=== PATIENT | female | born 1980 | race Caucasian/White ===

== ENCOUNTER → 2020-04-28 | Outpatient (CLI) | payer BC ==
[~2020-04-28] MED LIST: ACHYD1T PO; IBP800T PO; PREN1TAB25 PO
--- NOTE | 2020-04-28 11:00 | Diagnostic Imaging Report ---
INDICATION: Routine screening. Comparison is made with prior mammogram 05/04/2015. 2-D and 3-D bilateral screening mammography was performed with CAD. Both breasts are heterogeneous dense, limiting the sensitivity of mammography. No dominant mass or malignant appearing microcalcifications are seen. Axillae are unremarkable. IMPRESSION: BI-RADS Category 1 No mammographic features suspicious for malignancy are identified. ACR BI-RADS Category 1: Negative. Result letter will be mailed to the patient. Note: At least 10% of breast cancer is not imaged by mammography. Dictated by: Dictated on workstation # [id number]
== END ==
LOC: RAD 07:45
PROVIDERS: ATTEND Obstetrics & Gynecology
DX: Z12.31 Encounter for screening mammogram for malignant neoplasm of breast (principal)
CPT/HCPCS: 77063; 77067

== ENCOUNTER 2020-10-16 10:28 | Inpatient (IN) | payer BC ==
[~2020-10-16] VITALS: Ht 177.8 cm; Wt 110.4 kg
[2020-10-16] MEDS ORDERED: IBUPROFEN 600 MG (MOTRIN) TAB PO PRN (11:00)
[2020-10-16] MEDS ORDERED: CLINDAMYCIN 900 MG/50 ML IVPB 50 ML IV SCH (11:00)
[2020-10-16] MEDS ORDERED: HYDROcodone/APAP 5 MG/325 MG (LORTAB) TAB PO PRN (11:00)
[2020-10-16] MEDS ORDERED: ONDANSETRON 4 MG/2 ML (SDV) Z0FRAN IVP PRN (11:00)
[2020-10-16] MEDS ORDERED: PATIENT MAY USE OWN MEDS, ALL PO SCH (11:00)
[2020-10-16 12:00] VITALS: BP 128/84
[2020-10-16] MEDS: NS IV 1000 ML 1,000 ML IV SCH ×2 (12:02→18:00)
[2020-10-16] MEDS: ENOXAPARIN 40 MG/0.4 ML (LOVENOX) SYR SC SCH (12:02)
[2020-10-16] MEDS: LACTOBACILLUS ACIDOPHILUS (PROBIOTIC) CAPSULE PO SCH ×2 (12:05→17:59)
--- NOTE | 2020-10-16 12:13 | Progress Note ---
Subjective Date Seen by a Provider: Oct 16, 2020 Time Seen by a Provider: 12:09 Subjective/Events-last exam This is a 40 year old female seen at the end of last week for a brown recluse spider bite to her left upper arm. She was given a rocephin shot in my office and started on keflex and dapsone for the weekend. She went to the Urgent Care over the weekend for worsening redness and her antibiotic was changed to doxycycline. However, she presents today with worsening redness and warmth of her left upper arm. She will be directly admitted for IV antibiotics and further evaluation. Objective Exam Capillary Refill : General Appearance: Mild Distress Respiratory: Lungs Clear Cardiovascular: Regular Rate, Rhythm Gastrointestinal: normal bowel sounds, non tender, soft Extremity: Non Tender, No Calf Tenderness, No Pedal Edema Neurologic/Psychiatric: Alert, Oriented x3 Skin: Erythema (to left upper arm extending down medially to elbow and forearm--warm and tender to touch) Assessment/Plan Assessment/Plan Assess & Plan/Chief Complaint 1. Worsening Left Upper Extremity Cellulitis--admit for IV clindamycin and check CBC, CRP, lactic acid and blood cultures 2. Brown Recluse Spider Bite--continue dapsone LILO DAVIS DO Oct 16, 2020 12:13
[2020-10-16] MEDS: KETOROLAC 30 MG/ML VIAL IV PRN ×2 (12:17→20:21)
--- NOTE | 2020-10-16 12:18 | History & Physical ---
History of Present Illness History of Present Illness Reason for visit/HPI This is a 40 year old female seen at the end of last week for a brown recluse spider bite to her left upper arm. She was given a rocephin shot in my office and started on keflex and dapsone for the weekend. She went to the Urgent Care over the weekend for worsening redness and her antibiotic was changed to doxycycline. However, she presents today with worsening redness and warmth of her left upper arm. She will be directly admitted for IV antibiotics and further evaluation. Date of Admission Oct 16, 2020 at 11:01 Date Seen by a Provider: Oct 16, 2020 Time Seen by a Provider: 10:30 I consulted on this patient on 10/16/20 12:15 Attending Physician Quiana León DO Admitting Physician Quiana León DO Consult Allergies and Home Medications Allergies Coded Allergies: NKANo Known Allergies (Verified Allergy, Unknown, 10/16/20) Home Medications Hydrocodone Bit/Acetaminophen 1 Tab Tablet, 1-2 TAB PO Every 3 Hours PRN, (Reported) Ibuprofen 800 Mg Tab, 800 MG PO Q6H PRN, (Reported) Vit#96/Ferrous Fum/Fa 1 Each Tablet, 1 EACH PO DAILY, (Reported) Patient Home Medication List Home Medication List Reviewed: Yes Past Sfshqpr-Nsepgf-Qropxs Hx Past Med/Social Hx: Reviewed Nursing Past Med/Soc Hx Patient Social History Marrital Status: Smoking Status: Never a Smoker Recent Foreign Travel: No Contact w/other who traveled: No Immunizations Up To Date Tetanus Booster (TDap): Unknown Past Medical History Reproductive: No Review of Systems Constitutional: fever, weakness EENTM: No see HPI, No no symptoms reported, No ear discharge, No hearing loss, No ear pain, No blurred vision, No double vision, No eye pain, No tearing, No vision loss, No dental problems, No hoarseness, No mouth pain, No mouth swelling, No epistaxis, No nose congestion, No nose pain, No throat pain, No throat swelling, No other Respiratory: No no symptoms reported, No see HPI, No cough, No dyspnea on exertion, No hemoptysis, No orthopnea, No phlegm, No short of breath, No stridor, No wheezing, No other Cardiovascular: No no symptoms reported, No see HPI, No chest pain, No edema, No Hx of Intervention, No palpitations, No syncope, No vascular heart diseas, No other Gastrointestinal: nausea Genitourinary: decreased output Musculoskeletal: muscle pain Skin: other (worsening redness of left arm) Psychiatric/Neurological: Paresthesia (shooting pain to left arm area), Weakness Physical Exam Vital Signs Capillary Refill : Height, Weight, BMI Height: '" Weight: 241lbs. 0.0oz. [id number]; 34.92 BMI Method: General Appearance: Mild Distress Neck: Supple Respiratory: Lungs Clear Cardiovascular: Regular Rate, Rhythm Gastrointestinal: Normal Bowel Sounds, Non Tender, Soft Rectal: Deferred Back: No CVA Tenderness Extremity: Non Tender, No Calf Tenderness, No Pedal Edema Neurologic/Psychiatric: Alert, Oriented x3 Skin: Erythema (left upper arm with warmth/tenderness--extending medially into elbow and forearm) Assessment/Plan Assessment and Plan 1. Worsening Left Upper Extremity Cellulitis--admit for IV antibiotics and further workup 2. Brown Recluse Spider Bite--continue dapson Admission Diagnosis Admission Status: Inpatient Order (span 2 midnights) Reason for Inpatient Admission: Will need at least 48hrs of IV abx QUIANA LEÓN DO Oct 16, 2020 12:18
[2020-10-16] MEDS ORDERED: DAPS100T3 PO (13:07)
[2020-10-16] MEDS ORDERED: ACET325T38 PO (13:07)
[2020-10-16] MEDS ORDERED: MULT-1136 PO (13:07)
[2020-10-16] MEDS ORDERED: HYDR25TA4 PO (13:07)
[2020-10-16] MEDS ORDERED: LACT1CAP62 PO (13:07)
[2020-10-16] MEDS ORDERED: DOXY100T2 PO (13:07)
[2020-10-16] MEDS ORDERED: NORG1TAB14 PO (13:07)
[2020-10-16] MEDS ORDERED: CEPH500C PO (13:07)
[2020-10-16] MEDS: ACETAMINOPHEN 325 MG TABLET PO PRN (15:26)
[2020-10-16 16:00] VITALS: BP 133/83
[2020-10-16 16:25] LABS: ALANINE AMINOTRANSFERASE 12 U/L (0-55); ALKALINE PHOSPHATASE 68 U/L (40-136); BILIRUBIN,TOTAL 0.6 MG/DL (0.1-1.0); BUN/CREATININE RATIO 15; CALCIUM 10.1 MG/DL (8.5-10.1); CARBON DIOXIDE 23 MMOL/L (21-32); CHLORIDE 104 MMOL/L (98-107); CREATININE SERUM 0.82 MG/DL (0.60-1.30); GFR ESTIMATED > 60; GLUCOSE 84 MG/DL (70-105); POTASSIUM 3.4 MMOL/L (3.6-5.0); SODIUM 137 MMOL/L (135-145); TOTAL PROTEIN 8.3 GM/DL (6.4-8.2)
[2020-10-16 16:52] LABS: BASOPHILS % (AUTO) 0 % (0-10); EOSINOPHILS # (AUTO) 0.3 10^3/uL (0.0-0.3); EOSINOPHILS % (AUTO) 4 % (0-10); HEMATOCRIT 41 % (35-52); HEMOGLOBIN 13.8 g/dL (11.5-16.0); LYMPHOCYTES # (AUTO) 1.7 X 10^3 (1.0-4.0); LYMPHOCYTES % (AUTO) 19 % (12-44); MEAN CORPUSCULAR HEMOGLOBIN 32 pg (25-34); MEAN CORPUSCULAR HGB CONC 33 g/dL (32-36); MEAN CORPUSCULAR VOLUME 97 fL (80-99); MEAN PLATELET VOLUME 10.1 fL (9.0-12.2); MONOCYTES # (AUTO) 0.5 X 10^3 (0.0-1.0); MONOCYTES % (AUTO) 5 % (0-12); NEUTROPHILS # (AUTO) 6.6 X 10^3 (1.8-7.8); NEUTROPHILS % (AUTO) 72 % (42-75); PLATELET COUNT 187 10^3/uL (130-400); WHITE BLOOD COUNT 9.1 10^3/uL (4.3-11.0)
[2020-10-16] MEDS ORDERED: KCL 20 MEQ TAB (K-DUR) PO NR (17:15)
[2020-10-16 19:44] VITALS: BP 156/94
[2020-10-16 20:13] VITALS: BP 140/85
[2020-10-16] MEDS: DAPSONE 100 MG TABLET PO SCH (20:20)
[2020-10-16] MEDS: CLINDAMYCIN 900 MG/50 ML IVPB 50 ML IV SCH (20:20)
[2020-10-17 00:54] VITALS: BP 128/82
[2020-10-17] MEDS: CLINDAMYCIN 900 MG/50 ML IVPB 50 ML IV SCH ×3 (04:03→19:56)
[2020-10-17] MEDS: NS IV 1000 ML 1,000 ML IV SCH ×2 (04:06→13:39)
[2020-10-17 04:25] VITALS: BP 126/75
[2020-10-17] MEDS: KETOROLAC 30 MG/ML VIAL IV PRN (05:14)
[2020-10-17 06:13] LABS: HEMATOCRIT 34 % (35-52); HEMOGLOBIN 11.4 g/dL (11.5-16.0); MEAN CORPUSCULAR HEMOGLOBIN 33 pg (25-34); MEAN CORPUSCULAR HGB CONC 34 g/dL (32-36); MEAN CORPUSCULAR VOLUME 97 fL (80-99); PLATELET COUNT 154 10^3/uL (130-400); WHITE BLOOD COUNT 8.5 10^3/uL (4.3-11.0)
[2020-10-17 06:21] LABS: CHLORIDE 107 MMOL/L (98-107); POTASSIUM 3.8 MMOL/L (3.6-5.0); SODIUM 138 MMOL/L (135-145)
[2020-10-17 06:23] LABS: CALCIUM 8.3 MG/DL (8.5-10.1); GLUCOSE 99 MG/DL (70-105)
[2020-10-17 06:25] LABS: CARBON DIOXIDE 21 MMOL/L (21-32)
[2020-10-17 06:27] LABS: CREATININE SERUM 0.78 MG/DL (0.60-1.30); GFR ESTIMATED > 60
[2020-10-17 06:28] LABS: BUN/CREATININE RATIO 12
[2020-10-17 07:57] VITALS: BP 126/85
[2020-10-17] MEDS: LACTOBACILLUS ACIDOPHILUS (PROBIOTIC) CAPSULE PO SCH ×3 (08:41→18:13)
[2020-10-17] MEDS: DAPSONE 100 MG TABLET PO SCH ×2 (08:41→20:00)
[2020-10-17] MEDS: ENOXAPARIN 40 MG/0.4 ML (LOVENOX) SYR SC SCH (10:36)
[2020-10-17] MEDS: ACETAMINOPHEN 325 MG TABLET PO PRN ×2 (10:39→20:46)
[2020-10-17 12:21] VITALS: BP 131/88
[2020-10-17 16:00] VITALS: BP 131/73
--- NOTE | 2020-10-17 16:52 | Progress Note ---
Subjective Date Seen by a Provider: Oct 17, 2020 Time Seen by a Provider: 08:30 Subjective/Events-last exam Fwup Left Upper Arm Cellullitis, Brown Recluse Spider Bite. Arm less red and less warm. Focused Exam Lactate Level 10/16/20 15:35: Lactic Acid Level 1.27 Objective Exam Vital Signs Date Time Temp Pulse Resp B/P (MAP) Pulse Ox O2 Delivery O2 Flow Rate FiO2 10/17/20 16:00 36.4 79 20 131/73 (92) 94 Room Air 10/17/20 12:21 36.5 78 20 131/88 (102) 94 Room Air 10/17/20 08:00 Room Air 10/17/20 07:57 36.7 72 20 126/85 (99) 92 Room Air 10/17/20 04:25 37.0 87 20 126/75 (92) 92 Room Air 10/17/20 00:54 36.4 82 128/82 (97) 10/16/20 20:13 82 140/85 (103) 10/16/20 20:00 92 Room Air 10/16/20 19:44 36.7 97 18 156/94 (114) 92 Room Air I & O 10/17/20 07:00 Intake Total 1650 ml Output Total 6 ml Balance 1644 ml Capillary Refill : General Appearance: No Apparent Distress Extremity: Non Tender, No Calf Tenderness, No Pedal Edema Neurologic/Psychiatric: Alert, Oriented x3 Skin: Erythema (left upper arm with less erythema and less warmth and tenderness) Results Lab Laboratory Tests 10/17/20 06:03: White Blood Count 8.5, Red Blood Count 3.49L, Hemoglobin 11.4L, Hematocrit 34L, Mean Corpuscular Volume 97, Mean Corpuscular Hemoglobin 33, Mean Corpuscular Hemoglobin Concent 34, Red Cell Distribution Width 12.2, Platelet Count 154, Mean Platelet Volume 10.0, Sodium Level 138, Potassium Level 3.8, Chloride Level 107, Carbon Dioxide Level 21, Anion Gap 10, Blood Urea Nitrogen 9, Creatinine 0.78, Estimat Glomerular Filtration Rate > 60, BUN/Creatinine Ratio 12, Glucose Level 99, Calcium Level 8.3L Assessment/Plan Assessment/Plan Assess & Plan/Chief Complaint 1. Left Upper Arm Cellulitis--continue IV clindamycin 2. Brown Recluse Spider Bite--Continue dapsone Clinical Quality Measures Admission Status Admission Dx 1. Worsening Left Upper Extremity Cellulitis--admit for IV antibiotics and further workup 2. Brown Recluse Spider Bite--continue dapson LILO DAVIS DO Oct 17, 2020 16:52
[2020-10-17 20:04] VITALS: BP 135/84
[2020-10-18 00:05] VITALS: BP 135/85
[2020-10-18] MEDS: CLINDAMYCIN 900 MG/50 ML IVPB 50 ML IV SCH ×2 (03:18→11:43)
[2020-10-18] MEDS: NS IV 1000 ML 1,000 ML IV SCH (03:21)
[2020-10-18] MEDS: KETOROLAC 30 MG/ML VIAL IV PRN ×2 (03:21→12:22)
[2020-10-18 03:26] VITALS: BP 137/85
[2020-10-18 07:51] VITALS: BP 138/81
[2020-10-18] MEDS: LACTOBACILLUS ACIDOPHILUS (PROBIOTIC) CAPSULE PO SCH (08:40)
[2020-10-18] MEDS: DAPSONE 100 MG TABLET PO SCH (08:40)
[2020-10-18] MEDS: ENOXAPARIN 40 MG/0.4 ML (LOVENOX) SYR SC SCH (11:11)
[2020-10-18 11:38] VITALS: BP 142/92
[2020-10-18] MEDS ORDERED: CLIN300C12 PO (12:22)
--- NOTE | 2020-10-18 18:27 | Discharge Summary ---
Diagnosis/Chief Complaint Date of Admission Oct 16, 2020 at 11:01 Date of Discharge Oct 18, 2020 at 12:50 Discharge Date: Oct 18, 2020 Discharge Diagnosis 1. Left Upper Extremity Cellulitis--improved 2. Left Upper Extremity Brown Recluse Spider Bite--stable Reason Hospital Visit This is a 40 year old female seen at the end of last week for a brown recluse spider bite to her left upper arm. She was given a rocephin shot in my office and started on keflex and dapsone for the weekend. She went to the Urgent Care over the weekend for worsening redness and her antibiotic was changed to doxycycline. However, she presents today with worsening redness and warmth of her left upper arm. She will be directly admitted for IV antibiotics and further evaluation. Discharge Summary Hospital Course Was the Problem List Reviewed?: Yes Hospital Course This is a 40 year old female seen at the end of last week for a brown recluse spider bite to her left upper arm. She was given a rocephin shot in my office and started on keflex and dapsone for the weekend. She went to the Urgent Care over the weekend for worsening redness and her antibiotic was changed to doxycycline. However, she presents today with worsening redness and warmth of her left upper arm. She will be directly admitted for IV antibiotics and further evaluation. She was started on IV clindamycin as well as continued on oral dapsone. By the following hospital day, her left arm erythema was already improving. She was still having some shooting pains in the center where the necrotic black area was but it was not as severe. She was continued with the clindamycin and dapsone and by the day of discharge her left arm erythema/swelling and pain are much improved. She will be discharged home on oral clindamycin and continue dapsone and she will keep her follow up appointment with me tomorrow. Labs Laboratory Tests 10/16/20 15:35: Potassium Level 3.4L, C-Reactive Protein High Sensitivity 10.02H, Total Protein 8.3H 10/17/20 06:03: Red Blood Count 3.49L, Hemoglobin 11.4L, Hematocrit 34L, Calcium Level 8.3L Procedures None. Discharge Physical Examination Allergies: Coded Allergies: NKANo Known Allergies (Verified Allergy, Unknown, 10/16/20) Vitals & I&Os Vital Signs Date Time Temp Pulse Resp B/P (MAP) Pulse Ox O2 Delivery O2 Flow Rate FiO2 10/18/20 13:02 10/18/20 11:38 36.3 69 16 96 Room Air General Appearance: Alert, Oriented X3, Cooperative, No Acute Distress Skin: Other (left upper arm with much less erythema and black center stable) Psych/Mental Status: Mental Status NL, Mood NL Discharge Home Medications Reviewed and agree with Discharge Medication list on patient's Discharge Instruction sheet Instructions to Patient/Family Please see electronic discharge instructions given to patient. LILO DAVIS DO Oct 18, 2020 18:27
== END 2020-10-18 12:50 | disposition home or self-care (01) | DRG 603 ==
LOC: 4TH 11:01
PROVIDERS: ADMIT Family Medicine; ATTEND Family Medicine
DX: L03.114 Cellulitis of left upper limb (principal); W57.XXXA Bitten or stung by nonvenomous insect and other nonvenomous arthropods, initial encounter
CPT/HCPCS: 36415; 80048; 80053; 83605; 85025; 85027; 86141; 87040

== ENCOUNTER → 2021-04-13 | Outpatient (CLI) | payer BC ==
[~2021-04-13] MED LIST changes: +ACET325T38 PO; +CEPH500C PO; +CLIN-144 PO; +DAPS100T3 PO; +DOXY100T2 PO; +HYDR25TA4 PO; +LACT1CAP62 PO; +MULT-1136 PO; +NORG1TAB14 PO
--- NOTE | 2021-04-13 10:41 | Diagnostic Imaging Report ---
PROCEDURE: US Gallbladder. TECHNIQUE: Multiple real-time grayscale images were obtained over the right upper quadrant in various projections. INDICATION: Right upper quadrant pain. There are no prior studies available for comparison. FINDINGS: There is no evidence of cholelithiasis or acute cholecystitis and the common bile duct is not dilated. The liver does not appear to be enlarged. There is no focal mass involving the liver and the biliary tree is not abnormally dilated. Spectral color-flow imaging of the portal vein shows the vein is patent. The right kidney, the aorta and inferior vena cava are unremarkable. The pancreas is obscured by bowel gas. IMPRESSION: 1. There is no acute abnormality of the right upper quadrant. 2. If clinical concern regarding an underlying abnormality of the gallbladder persists and further imaging is desired, then MRI would be recommended. Dictated by: Dictated on workstation # [id number]
--- NOTE | 2021-04-13 11:34 | Diagnostic Imaging Report ---
PROCEDURE: US Non-ob pelvis comp/trans. TECHNIQUE: Multiple realtime grayscale images were obtained of the pelvis in various projections endovaginally. Transabdominal imaging was also performed. INDICATION: Left lower quadrant pain. Urinary hesitancy. COMPARISON: None available. FINDINGS: The uterus measures 7.9 x 3.6 x 4.5 cm and is anteverted. The myometrium is normal in echogenicity without discrete mass. The endometrium measures up to 0.2 cm where visualized, and is normal in echogenicity. Simple nabothian gland cyst is present at the cervix and measures 1.0 cm in maximal diameter. The right ovary measures 2.0 x 0.9 x 1.2 cm. The left ovary measures 2.3 x 1.6 x 1.0 cm. Both ovaries are physiologic in appearance. Blood flow is seen in both ovaries on color doppler imaging. No suspicious adnexal mass or fluid collection. No free pelvic fluid. IMPRESSION: No abnormality in the pelvis to account for patient's pain. Dictated by: Dictated on workstation # [id number]
== END ==
LOC: RAD 09:15
PROVIDERS: ATTEND Family Medicine
DX: R39.11 Hesitancy of micturition (principal); R10.11 Right upper quadrant pain; R10.32 Left lower quadrant pain
CPT/HCPCS: 76705; 76830; 76856

== ENCOUNTER 2021-09-13 05:33 | Outpatient (CLI) | payer BC ==
[~2021-09-13] VITALS: Ht 177.8 cm; Wt 109.0 kg
== END 2021-09-14 12:17 | disposition home or self-care (01) ==
LOC: PREOP 05:33
PROVIDERS: ATTEND Obstetrics & Gynecology
DX: Z01.818 Encounter for other preprocedural examination (principal)

== ENCOUNTER 2021-09-21 06:02 | Day surgery (SDC) | payer BC ==
[2021-09-21] VITALS (13 sets, daily range): BP systolic 107–133; BP diastolic 54–83
[~2021-09-21] VITALS: Ht 177.8 cm; Wt 109.0 kg
[2021-09-21] MEDS ORDERED: ceFAZolin INJECTION 1,000 MG VIAL IV ONE (06:15)
[2021-09-21] MEDS ORDERED: LIDOCAINE/EPI 2% 1:200,00 (XYLOCAINE) 20 ML VIAL ONE (06:30)
[2021-09-21] MEDS ORDERED: ESTRADIOL VAGINAL CREAM 42.5 GM (ESTRACE) VG ONE (06:30)
[2021-09-21] MEDS ORDERED: BUP/EPI 0.5% 1:200,000 (SENSORCAINE) 30 ML VIAL ONE (06:30)
[2021-09-21] MEDS: LACTATED RINGERS 1,000 ML IV PRN ×3 (06:45→12:50)
[2021-09-21] MEDS ORDERED: proPOfol 200 MG/20 ML (DIPRIVAN) VIAL IV ONE (06:57)
[2021-09-21] MEDS ORDERED: LIDOCAINE PF 2% 5 ML (XYLOCAINE) VIAL ONE (06:57)
[2021-09-21] MEDS ORDERED: KETOROLAC 30 MG/ML VIAL ONE (06:57)
[2021-09-21] MEDS ORDERED: ROCURONIUM 50 MG/5 ML (ZEMURON) VIAL IV ONE (06:57)
[2021-09-21] MEDS ORDERED: MIDAZOLAM 2 MG/2 ML (VERSED) VIAL ONE (06:57)
[2021-09-21] MEDS ORDERED: ONDANSETRON 4 MG/2 ML (SDV) Z0FRAN ONE ×2 (06:57→09:57)
[2021-09-21] MEDS ORDERED: fentaNYL INJ 100 MCG/2 ML AMP ONE (06:57)
[2021-09-21 07:01] LABS: BASOPHILS % (AUTO) 0 % (0-10); EOSINOPHILS # (AUTO) 0.2 10^3/uL (0.0-0.3); EOSINOPHILS % (AUTO) 3 % (0-10); HEMATOCRIT 38 % (35-52); HEMOGLOBIN 12.9 g/dL (11.5-16.0); LYMPHOCYTES # (AUTO) 2.1 10^3/uL (1.0-4.0); LYMPHOCYTES % (AUTO) 44 % (12-44); MEAN CORPUSCULAR HEMOGLOBIN 32 pg (25-34); MEAN CORPUSCULAR HGB CONC 34 g/dL (32-36); MEAN CORPUSCULAR VOLUME 94 fL (80-99); MEAN PLATELET VOLUME 10.1 fL (9.0-12.2); MONOCYTES # (AUTO) 0.3 10^3/uL (0.0-1.0); MONOCYTES % (AUTO) 6 % (0-12); NEUTROPHILS # (AUTO) 2.2 10^3/uL (1.8-7.8); NEUTROPHILS % (AUTO) 46 % (42-75); PLATELET COUNT 179 10^3/uL (130-400); WHITE BLOOD COUNT 4.7 10^3/uL (4.3-11.0)
--- NOTE | 2021-09-21 07:44 | Progress Note-Pre Operative ---
Pre-Operative Progress Note H&P Reviewed The H&P was reviewed, patient examined and no changes noted. Date Seen by Provider: Sep 21, 2021 Time Seen by Provider: 07:43 Date H&P Reviewed: Sep 21, 2021 Time H&P Reviewed: 07:43 Pre-Operative Diagnosis: Menometrorrhagia/uterovaginal prolapse/stress urinary incontinence TIM PHAM MD Sep 21, 2021 07:44
--- NOTE | 2021-09-21 07:44 | Progress Note-Post Operative ---
Post-Operative Progess Note Surgeon (s)/Winding Inspector And Tester (s) Surgeon TIM PHAM MD Winding Inspector And Tester: Evelyne Pre-Operative Diagnosis Menometrorrhagia/uterovaginal prolapse/stress urinary incontinence Post-Operative Diagnosis Same with pathology pending Procedure & Operative Findings Date of Procedure 09/21/21 Procedure Performed/Findings Total laparoscopic hysterectomy with bilateral salpingectomies as well as anterior and posterior vaginal repairs with enterocele repair and with pubovaginal sling by Dr. Roblero Anesthesia Type General Estimated Blood Loss Estimated blood loss (mL): 500cc Specimens/Packing Specimens Removed Uterus and fallopian tubes TIM PHAM MD Sep 21, 2021 07:44
[2021-09-21] MEDS ORDERED: BENZOCAINE/MENTHOL (DERMOPLAST) 56 ML CAN TP PRN (07:45)
[2021-09-21] MEDS ORDERED: PROMETHAZINE INJ 25 MG/ML (PHENERGAN) AMP IM PRN (07:45)
[2021-09-21] MEDS ORDERED: ONDANSETRON 4 MG/2 ML (SDV) Z0FRAN IVP PRN ×3 (07:45→10:00)
--- NOTE | 2021-09-21 07:48 | Discharge Inst-Surgical ---
Discharge Inst-Surgical Depart Medication/Instructions New, Converted or Re-Newed RX: Transmitted to Pharmacy Consults/Follow Up Patient Instructions: As directed Orders & Referrals Follow Up Appt: Return to clinic On Friday at 9:30 AM for staple removal Call to make follow up appt. for patient in 4 weeks. Activity: Rest for 24 hours, than as tolerated. Wound Care: May remove Band-Aid tomorrow. Replace as desired. Keep incisions clean and dry. Wash daily with soap and water. Please call in RX to patient pharmacy. Diet: As tolerated shower or tub bathe as desired. No driving for 24 hours, no alcoholic beverages for 24 hours, and nothing per vagina (no tampons, douching, or intercourse) for 8 weeks. Patient to return to the clinic as soon as possible for: Temperature greater than 101F, Severe Pain, Foul discharge from incision or vagina, Excessive Bleeding (more than a period). Activity Activity as Tolerated: No Diet Discharge Diet: No Restrictions TIM PHAM MD Sep 21, 2021 07:48
[2021-09-21] MEDS ORDERED: ESTROGENS CONJ INJECTION 25 MG in WATER (STERILE) FOR INJECTION 5 ML IV NR (08:00)
--- NOTE | 2021-09-21 08:14 | Progress Note-Pre Operative ---
Pre-Operative Progress Note H&P Reviewed The H&P was reviewed, patient examined and no changes noted. Date Seen by Provider: Sep 21, 2021 Time Seen by Provider: 07:00 Date H&P Reviewed: Sep 21, 2021 Time H&P Reviewed: 07:00 Pre-Operative Diagnosis: RILEY MARIE MD Sep 21, 2021 08:14
--- NOTE | 2021-09-21 08:15 | Progress Note-Post Operative ---
Post-Operative Progess Note Surgeon (s)/Logistics Technician (s) Surgeon RILEY EMMANUEL MD Logistics Technician: ANKIT Pre-Operative Diagnosis LUX Post-Operative Diagnosis SAME Procedure & Operative Findings Date of Procedure 09/21/21 Procedure Performed/Findings PVS AND CYSTOSCOPY Anesthesia Type GENERAL Estimated Blood Loss Estimated blood loss (mL): NEGLIGIBLE Specimens/Packing Specimens Removed NONE PackinGM ESTRACE VAG PACK RILEY EMMANUEL MD Sep 21, 2021 08:15
[2021-09-21] MEDS ORDERED: DOCUSATE SODIUM 100 MG (COLACE) CAP PO SCH (09:00)
[2021-09-21] MEDS ORDERED: SEVOFLURANE (ULTANE) 15 ML INHAL SOLN ONE (09:34)
[2021-09-21] MEDS ORDERED: HYDROmorphone 2 MG/ML VIAL (DILAUDID) ONE (09:55)
[2021-09-21] MEDS ORDERED: PROMETHAZINE INJ 25 MG/ML (PHENERGAN) AMP IVP ONE (10:00)
[2021-09-21] MEDS ORDERED: MEPERIDINE (DEMEROL) INJ 50 MG/ML IVP ONE (10:00)
[2021-09-21] MEDS ORDERED: HYDROmorphone 2 MG/ML VIAL (DILAUDID) IV ONE (10:00)
[2021-09-21] MEDS ORDERED: morphine INJ 10 MG/ML 1ML (SYR OR VIAL) IVP ONE (10:00)
--- NOTE | 2021-09-21 10:35 | Anesthesia-General Post-Op ---
General Patient Condition Mental Status/LOC: Same as Preop Cardiovascular: Satisfactory Nausea/Vomiting: Absent Respiratory: Satisfactory Pain: Controlled Complications: Absent Post Op Complications Complications None Follow Up Care/Instructions Patient Instructions None needed. Anesthesia/Patient Condition Patient Condition Patient is doing well, no complaints, stable vital signs, no apparent adverse anesthesia problems. No complications reported per nursing. SANJUANA REID CRNA Sep 21, 2021 10:35
[2021-09-21] MEDS: fentaNYL INJ 100 MCG/2 ML AMP IVP PRN ×5 (11:10→18:46)
[2021-09-21] MEDS: KETOROLAC 30 MG/ML VIAL IVP SCH ×2 (15:33→20:43)
[2021-09-21] MEDS: oxyCODONE/APAP 5/325MG (PERCOCET 5) TABLET PO PRN ×2 (15:33→20:43)
--- NOTE | 2021-09-21 17:44 | OPERATIVE REPORT ---
DATE OF SERVICE: 09/21/2021 PREOPERATIVE DIAGNOSIS: On my part, stress urinary incontinence. POSTOPERATIVE DIAGNOSIS: On my part, stress urinary incontinence. OPERATIONS PERFORMED: Pubovaginal sling and cystoscopy. SURGEON: Riley Emmanuel MD. RAILROAD CAR REPAIR SUPERVISOR: Jarvis Hassan MD. ANESTHESIA: General. COMPLICATIONS: None. DESCRIPTION OF PROCEDURE: After Dr. Hassan performed the first part of his surgery that he will dictate, I went ahead and passed the Desara II sling on both sides using the described technique. The sling was sitting nicely under the mid urethra with no tension or twist and passage of a curved hemostat easily between it and the underlying tissue. I removed the Sprague catheter and performed cystoscopy to confirm the integrity of the bladder, ureteral orifices, and urethra with no foreign body anywhere. I left the bladder half removed the cystoscope, performed a manual Valsalva maneuver that was negative. I reinserted the Sprague catheter draining clear fluid. Estimated blood loss for my part negligible and Dr. Hassan proceeded with rest of his surgery that he will dictate. Job ID: [id number] DocumentID: [id number] Dictated Date: 09/21/2021 09:21:02 Coffee Machine Technician Date: 09/21/2021 17:43:28 Dictated By: RILEY EMMANUEL MD
[2021-09-21] MEDS: D5 LR IV SOLUTION 1,000 ML IV SCH ×2 (18:50→20:57)
[2021-09-21] MEDS: DOCUSATE SODIUM 100 MG (COLACE) CAP PO SCH (20:43)
--- NOTE | 2021-09-21 22:33 | OPERATIVE REPORT ---
DATE OF SERVICE: 09/21/2021 PREOPERATIVE DIAGNOSES: Uterovaginal prolapse, menorrhagia and stress urinary incontinence. POSTOPERATIVE DIAGNOSES: Uterovaginal prolapse, menorrhagia and stress urinary incontinence. OPERATIVE PROCEDURE: Total laparoscopic hysterectomy with bilateral salpingectomy as well as anterior and posterior vaginal repairs with enterocele repair with Dr. Bella doing a pubovaginal sling and cystoscopy. OPERATIVE DESCRIPTION: With the patient in supine position under satisfactory general anesthesia, she was repositioned in dorsal lithotomy position in the [facility] and then prepped and draped in the usual fashion for abdominal and vaginal surgery using the da Los assistance. Weighted speculum placed in posterior fornix of vagina, cervix exposed and grasped anteriorly with single tooth tenaculum. Uterus sounded to 12 cm with uterine sound. The cervix was then serially dilated with Stuart dilators to accommodate a Maria R II manipulator, which was placed using a 6 mm x 8 cm uterine probe and a 30 mm colpotomy ring. Sutures of #1 Vicryl placed at 3 and 9 o'clock position of the cervix to affix the uterus to the manipulator. The tenaculum and speculum were removed. Sprague catheter placed in the urinary bladder to dependent drainage and the patient was brought in low dorsal lithotomy position. A 12 mm incision was made superior to the umbilicus by about 11 cm. Veress needle was placed through that incision into the abdominal cavity and correct placement confirmed with water drop test. The abdomen was insufflated with 2.4 liters of carbon dioxide. The Veress needle was removed. Abdominal wall was transilluminated and ports of 8 mm were placed through incisions of those sizes 3 cm superior to the umbilicus and 8 cm lateral to the umbilicus. The patient was placed in Trendelenburg allowing the bowel spill out of the pelvis. The da Los column was docked on to the ports. The operative instruments were placed in the right and left lateral arms and I retired to the [employer] console. At the console using the vessel sealer on the right and a bipolar fenestrated grasper on the left, the pelvis was first examined. Both ovaries were normal. Uterus was large, mottled, boggy consistent with adenomyosis. The fallopian tubes had some evidence of endometriosis. Laparoscope was rotated. The appendix was identified. It was a normal vermiform appendix. Laparoscope was brought back to the pelvis. There were some adhesions of the sigmoid mesentery to the left IP ligament. These were taken down to allow access to the IP ligament. With that done, both ureters seemed to peristalse. The procedure was initiated by grasping and elevating the right fallopian tube and then clamping, cauterizing and dividing the mesosalpinx across to the uteroovarian pedicle, which was clamped, cauterized and divided also with the vessel sealer. Continued dissection was then carried across the round ligament down the broad ligament onto the cardinal ligament, allowing for removal of the right fallopian tube eventually with the uterus. Same procedure performed on the left with the same result. Anterior lower uterine segment peritoneum was now divided. The bladder carefully dissected down off the lower uterine segment. Colpotomy incision was started at 12 o'clock position onto the colpotomy ring. The colpotomy ring was exposed completely. Then, the uterus was extracted. There was some bleeding, particularly from the right uterine artery pedicle. This was controlled by closing the vaginal cuff with a V-Loc barbed suture, taking care to ensure inclusion of those vessels and to the angle stitches. With that done, the vaginal cuff was closed with the balance of the suture. Good hemostasis was achieved. Good reapproximation was achieved. There was no bleeding. There was no abnormal pathology. At this point, the laparoscopic portion of the procedure was halted. The operative instruments were removed as were the ports. The abdomen was evacuated insufflating gas and then the skin incisions were stapled after closing the fascia at the supraumbilical incision with a [id number] suture of 2-0 Vicryl. The patient was now repositioned into the dorsal lithotomy position for the anterior and posterior vaginal repairs. Anterior repair was affected by placing Rogers clamps on the anterior vaginal wall and then opening the vaginal wall in the midline with Metzenbaum scissors. The vaginal wall was dissected off of the bladder back to the pubic rami bilaterally and then the endopelvic fascia and bladder wall were plicated with 2-0 Vicryl suture, elevating the bladder and lengthening the urethra. At this point, Dr. Bella assumed care of the patient for a pubovaginal sling and cystoscopy. I remained to assist. On completion of this portion of the procedure, I resumed care of the patient, resected redundant anterior vaginal wall and then closed the vaginal wall with a running locked suture of 3-0 Vicryl Rapide. Hemostasis was complete and good support was evident. Dr. Bella had left the Sprague catheter to dependent drainage. It was draining clear yellow urine. Posterior repair was affected by placing Rogers clamps on the perineum and hymenal ring at 5 and 7 o'clock position and inverted triangle skin was removed from the perineal body and upright triangle from the posterior vaginal floor. The rectovaginal space was entered sharply and dissected bluntly to the apex of vagina. The rectovaginal space was then obliterated with sutures of 2-0 Vicryl. This perineal body was restored with 2-0 Vicryl sutures and then redundant posterior vaginal muscularis mucosa was removed sharply. There was a small enterocele that had been plicated with 2-0 Vicryl suture in a pursestring fashion. Prior to obliterating the rectovaginal space. With the redundant posterior vaginal muscularis mucosa was removed, the vaginal wall was closed with running locked suture of 3-0 Vicryl Rapide, that closure was continued past the hymenal ring down on the perineal body then back up subcutaneous to the hymenal ring where the suture was tied. Digital rectal exam confirmed no stricture or stenosis of the rectum. There were no sutures into or through the rectal mucosa. The vagina was now filled with Estrace vaginal cream and a pack of Kerlix gauze was placed. Sprague catheter was left to dependent drainage. Sponge and needle counts were correct. Blood loss at this point was around 500 mL. The patient tolerated the procedure well and was uneventfully awakened from her general anesthesia and transferred to the recovery room in stable condition. Job ID: [id number] DocumentID: [id number] Dictated Date: 09/21/2021 11:30:30 Estate Manager Date: 09/21/2021 22:31:20 Dictated By: TIM PHAM MD
[2021-09-22 00:50] VITALS: BP 125/64
[2021-09-22] MEDS: oxyCODONE/APAP 5/325MG (PERCOCET 5) TABLET PO PRN ×3 (00:50→12:01)
[2021-09-22] MEDS: KETOROLAC 30 MG/ML VIAL IVP SCH ×2 (03:07→09:02)
[2021-09-22 06:44] VITALS: BP 131/60
[2021-09-22] MEDS ORDERED: IBUPROFEN 800 MG (MOTRIN) TAB PO ONE (07:58)
--- NOTE | 2021-09-22 08:36 | Progress Note ---
Standard Progress Note Progress Notes/Assess & Plan Date Seen by a Provider: Sep 22, 2021 Time Seen by a Provider: 08:35 Progress/Assessment & Plan This patient is without complaint. She is ambulating, tolerating oral intake and has good pain control. She has not voided as of yet. Vital Signs Date Time Temp Pulse Resp B/P (MAP) Pulse Ox O2 Delivery O2 Flow Rate FiO2 09/22/21 06:44 36.0 73 18 131/60 (83) 98 Room Air 09/22/21 00:50 36.0 75 18 125/64 (84) 96 Room Air 09/21/21 21:06 36.7 65 18 124/71 (88) 96 Room Air 09/21/21 17: 36.5 73 18 123/63 (83) 96 Room Air 09/21/21 16:14 Room Air 09/21/21 12:50 35.9 70 20 123/57 (79) 97 Room Air 09/21/21 11:20 57 133/67 (89) 98 09/21/21 10:52 36.0 62 18 127/61 (83) 98 Room Air 09/21/21 10:40 36.6 16 126/74 (91) 99 Room Air 09/21/21 10:40 Room Air 09/21/21 10:30 Room Air 09/21/21 10:30 14 123/70 (87) 99 Room Air 09/21/21 10:20 16 128/66 (86) 100 OxyMask 2 09/21/21 10:15 OxyMask 3 09/21/21 10:10 17 120/58 (78) 100 OxyMask 3 09/21/21 10:00 18 110/65 (80) 99 OxyMask 4 09/21/21 10:00 OxyMask 4 09/21/21 09:50 18 116/60 (78) 100 OxyMask 6 09/21/21 09:44 OxyMask 8 09/21/21 09:44 37.2 15 107/54 (71) 99 OxyMask 8 I & O 09/22/21 07:00 Intake Total 5510 ml Output Total 2285 ml Balance 3225 ml Vital signs are stable. Patient is afebrile. The abdomen is benign. Extremities show no clubbing cyanosis. There is no Homans' sign. Pelvic exam is deferred Assessment and plan Postoperative day #1 doing well plan is for routine convalescent care with discharge home on demonstration of adequate bladder function.Dr. Bella is following patient's bladder progress and will determine whether discharge is appropriate today or tomorrow Final Diagnosis Uterovaginal prolapse/menorrhagia/stress incontinence TIM PHAM MD Sep 22, 2021 08:36
[2021-09-22 08:44] VITALS: BP 142/69
[2021-09-22] MEDS: DOCUSATE SODIUM 100 MG (COLACE) CAP PO SCH (08:46)
[2021-09-22] MEDS ORDERED: CIPR250S3 PO (10:35)
[2021-09-22 11:31] VITALS: BP 139/81
[2021-09-22] MEDS ORDERED: IBUPROFEN 800 MG (MOTRIN) TAB PO SCH (12:00)
[2021-09-22 12:10] VITALS: BP 139/81
== END 2021-09-22 12:10 | disposition home or self-care (01) ==
LOC: SDC 06:02 → WS 09:40 → SDC 09-22 12:10
PROVIDERS: ATTEND Obstetrics & Gynecology
DX: N80.0 Endometriosis of uterus (principal); N81.4 Uterovaginal prolapse, unspecified; N92.0 Excessive and frequent menstruation with regular cycle; N39.3 Stress incontinence (female) (male); E66.9 Obesity, unspecified; Z68.34 Body mass index [BMI] 34.0-34.9, adult
CPT/HCPCS: 57260; 57288; 58571; 84703; 85025; 87081; 94664; C1771; 36415